=== PATIENT | male | born 1950 | race Caucasian/White ===

== ENCOUNTER 2019-10-08 16:06 | Emergency (ER) | payer MEDICARE, OTHER ==
[2019-10-08] MEDS ORDERED: KETOROLAC TROMETHAMINE 15MG/ML ONE (16:56)
[2019-10-08] MEDS ORDERED: DEXAMETHASONE SOD PHOSPHATE 4 MG/ML 1ML VIAL ONE (16:56)
[2019-10-08] MEDS ORDERED: LIDOCAINE 5% TOPICAL PATCH TP ONE (16:56)
== END 2019-10-08 18:42 | disposition home or self-care (01) ==
LOC: EDH 16:06
DX: M54.40 Lumbago with sciatica, unspecified side (principal); E11.9 Type 2 diabetes mellitus without complications; Z72.0 Tobacco use
CPT/HCPCS: 72100; 72131; 96372 ×2; 99284; J1100; J1885

== ENCOUNTER 2020-03-02 12:41 | Emergency (ER) | payer OTHER | END 2020-03-02 16:37 | disposition home or self-care (01) | LOC: EDH 12:41 | DX: R10.9 Unspecified abdominal pain (principal); E11.9 Type 2 diabetes mellitus without complications; Z72.0 Tobacco use | CPT/HCPCS: 74176 ==